=== PATIENT | female | born 1955 | race Caucasian/White ===

== ENCOUNTER → 2023-03-20 11:41 | Outpatient (BNVA) | payer MEDICARE, SELFPAY | PROVIDERS: PCP Family Medicine; Visit Provider Family Medicine | DX: I10 Essential (primary) hypertension (principal); Z85.3 Personal history of malignant neoplasm of breast; R07.9 Chest pain, unspecified | CPT/HCPCS: 80053; 80061; 85025 ==

== ENCOUNTER → 2023-05-08 08:44 | Outpatient (BNVA) | payer MEDICARE, SELFPAY | PROVIDERS: PCP Family Medicine; Visit Provider Family Medicine | DX: R30.0 Dysuria (principal); N39.0 Urinary tract infection, site not specified | CPT/HCPCS: 81000 ==

== ENCOUNTER → 2023-05-17 15:32 | Outpatient (BNVA) | payer MEDICARE, SELFPAY | PROVIDERS: PCP Family Medicine; Visit Provider Family Medicine | DX: N39.0 Urinary tract infection, site not specified (principal) | CPT/HCPCS: 81000; 87077; 87086; 87184 ==

== ENCOUNTER → 2024-03-25 09:49 | Outpatient (BNVA) | payer MEDICARE, SELFPAY | PROVIDERS: PCP Family Medicine; Visit Provider Family Medicine | DX: Z00.00 Encounter for general adult medical examination without abnormal findings; I10 Essential (primary) hypertension; Z85.3 Personal history of malignant neoplasm of breast; E11.9 Type 2 diabetes mellitus without complications | CPT/HCPCS: 80053; 80061; 83036; 84443; 85025 ==

== ENCOUNTER 2024-04-01 14:50 | Outpatient (CLI) | payer MEDICARE, SELFPAY ==
--- NOTE | 2024-04-01 15:00 | XR_ITS ---
WS: [id number] DEXA (DUAL ENERGY X-RAY ABSORPTIOMETRY) Bone mineral density was performed using a [employer] machine. HISTORY: screening COMPARISON: None available. Lumbar spine BMD (L1-L4): 1.007 g/cm2 T score: -1.4 Z score: -0.2 Total hip BMD: Left: 0.867 g/cm2. T score: -1.1 Z score: 0.0 Right: 0.874 g/cm2. T score: -1.1 Z score: 0.0 10 year probability of a major osteoporotic fracture is 9.7%. XR/XR DEXA axial skeleton* 06007 IMPRESSION: OSTEOPENIA based upon the WHO classification for females.
== END 2024-04-01 14:51 | disposition home or self-care (01) ==
LOC: RAD 14:51
PROVIDERS: PCP Family Medicine; Visit Provider Family Medicine
DX: Z00.00 Encounter for general adult medical examination without abnormal findings (principal); M85.80 Other specified disorders of bone density and structure, unspecified site
CPT/HCPCS: 77080

== ENCOUNTER 2024-05-08 07:57 | Outpatient (CLI) | payer MEDICARE, SELFPAY ==
--- NOTE | 2024-05-08 08:00 | US_ITS ---
WS: [id number] US pelvic complete* 77566 HISTORY: vaginal bleeding, 68-year-old postmenopausal. COMPARISON: None available. Uterus: 9.4 cm x 6.2 cm x 5.4 cm. Anteverted uterus. Heterogeneous uterus with areas of shadowing. There is a calcification towards the uterine fundus measuring 1.7 x 1.2 x 0.8 cm. This may be associated with a fibroid. There are scatte red areas of decreased echogenicity. The largest area is posterior to the endometrium this area measu res 4.2 x 3.2 x 2.8 cm. There are central and peripheral calcifications. With distortion. Endometrium: 1.0 cm. Heterogeneous enlarged endometrium. Endometrium is being distorted by fibroids. Neither ovary is identified. No adnexal masses. US/US pelvic complete* 90020 IMPRESSION: 1. Abnormal endometrium. Endometrium is enlarged and distorted by fibroids. Du e to the enlargement and postmenopausal bleeding hysteroscopy should be obtaine d. 2. Mildly enlarged uterus with diffuse heterogeneity. Fibroid uterus. The larg est fibroid along the posterior myometrium distorts the endometrium. This fibro id measures 4.2 x 3.2 x 2.8 cm.
== END 2024-05-08 07:58 | disposition home or self-care (01) ==
LOC: RAD 07:58
PROVIDERS: PCP Family Medicine; Visit Provider Family Medicine
DX: D25.9 Leiomyoma of uterus, unspecified (principal); N85.00 Endometrial hyperplasia, unspecified; N95.0 Postmenopausal bleeding
CPT/HCPCS: 76856

== ENCOUNTER → 2024-07-08 10:06 | Outpatient (BNVA) | payer MEDICARE, SELFPAY | PROVIDERS: PCP Family Medicine; Visit Provider Family Medicine | DX: E11.9 Type 2 diabetes mellitus without complications (principal); E03.9 Hypothyroidism, unspecified; M85.80 Other specified disorders of bone density and structure, unspecified site | CPT/HCPCS: 80048; 83036; 84443 ==

== ENCOUNTER 2024-08-21 08:39 | Day surgery (SDC) | payer MEDICARE, SELFPAY ==
--- NOTE | 2024-08-20 23:50 | P.HP_ITS ---
Providers/Chief Complaint Admitting Physician: Reid Bridges MD Primary UNLEAVENED DOUGH MIXER: Reid Bridges MD Primary Care Provider: Rojas Norman MD Chief Complaint: N95.0 HPI UNLEAVENED DOUGH MIXER History of Present Illness Samira Mays is a 69 year old female LNMP at age 53 began spotting 3 months ago now scheduled for hysteroscopy, endometrial sampling, possible endometrial polypectomy Medications/Allergies Home Medications ?Medication ?Instructions ?Recorded ?Confirmed ?Last Taken ?Type levothyroxine 25 mcg tablet 25 mcg PO DAILY #90 tabs 1 06/14/23 08/20/24 08/19/24 Rx lorazepam 1 mg tablet 1 mg PO DAILY PRN sleep #30 tabs 05/14/24 08/20/24 08/19/24 Rx aspirin 81 mg tablet,delayed 81 mg PO DAILY 06/30/24 0 08/20/24 08/19/24 History release (Adult Aspirin Regimen) lisinopril 10 mg tablet 10 mg PO DAILY #90 tabs 07/2708/20/24 08/19/24 Rx Allergies Allergy/AdvReac Type Severity Reaction Status Date / Time No Known Allergies Allergy Verified 08/20/24 12:48 PFSH UNLEAVENED DOUGH MIXER PFSH: Medical History Osteopenia Hypothyroid Hyperglycemia Hx of breast cancer Hypertension Family History Sister Breast cancer Diabetes Father Diabetes Heart disease Mother Diabetes Hypertension Brother Diabetes Grandfather Thyroid disease Denies family history of Colon cancer Ovarian cancer Prostate cancer Hyperlipidemia Uterine cancer Stroke Social History Smoking and tobacco/nicotine status: unknown if used tobacco/nicotine History History History 3 Term 3 0 Miscarriages/Ectopic 0 Living Children 3 Physical Exam Const: COMMON NORMALS: no acute distress, average body habitus, patient oriented x3, healthy appearing and alert Resp: COMMON NORMALS: normal respiratory effort and clear to auscultation bilaterally Cardio: COMMON NORMALS: regular rate and regular rhythm GI: COMMON NORMALS: Normal to inspection, nondistended, normoactive bowel sounds present and non-tender Results Labs OB ([facility]): Hct 41.9 % (36-47) 03/25/24 Hgb 13.30 g/dL (11.27-16.99) 03/25/24 Plt Count 254 10^3/cmm (157-399) 03/25/24 TSH 4.78 uIU/mL (0.27-4.20) H 07/08/24 Hemoglobin A1c 6.3 % (4.0-6.0) H 07/08/24 Micro Urine Specimen 05/17/23 A&P Assessment and plan (1) Postmenopausal bleeding: plan hysteroscopy, endometrial sampling, possible endometrial polypectomy Procedures and risks explained to patient, including, but not limited to, risks of infection, bleeding, injury to internal organs, anesthesia, blood transfusions. One particular risk is that, in the process of dilating the cervix, the dilating instrument may perforate the uterus. Usually, the uterus heals spontaneously without any complications. Patient understands and wants to proceed PDMP PDMP Reviewed: Not Reviewed Attestations Medical Necessity Statement*: patient with postmenopausal bleeding, now for hysteroscopy Coding Level of Care Code Acute Code for Chg Fwd Diagnoses Postmenopausal bleeding N95.0 Time Spent (min) 30
[2024-08-21] VITALS (10 sets, daily range): BP systolic 121–143; BP diastolic 55–72; PULSE 71–95; RESP 11–19; TEMP 36.4–36.8; O2SAT 96–100; BMI 26.9
[2024-08-21] MEDS: sodium chloride 0.9% 1,000 ML 30 ML IV (09:06)
--- NOTE | 2024-08-21 09:37 | ANES.PREANE2 ---
Pre-Anesthetic Assessment Height/Weight: Height 5 ft 6 in Weight 167 lb Temp Pulse Resp BP Pulse Ox O2 Del Method 97.6 F 71 17 143/70 99 Room Air 08/21/24 08:57 08/21/24 08:57 08/21/24 08:57 08/21/24 08:57 08/21/24 08:57 08/21/24 08:59 Preop Diagnosis: postmenopausal bleeding Operation Date: 08/21/24 10:25 Proposed Procedures p Hysteroscopy w/ Endometrial Sampling 88029, N95.0(Not Applicable) - Reid Bridges MD s Poylpectomy(Not Applicable) - Reid Bridges MD Was Beta Rosario taken within 24 hours: N/A Was Clonidine taken within 24 hours: N/A Last intake: Intake Last Liquid Date 08/20/24 Last Liquid Time 19:30 Last Solid Date 08/20/24 Last Solid Time 19:30 Social No alcohol and No tobacco Exam alert, oriented x 3, clear to auscultation bilaterally and regular rate & rhythm Airway Submandibular: within normal limits Cervical ROM: within normal limits Mallampati: Class II Dentition: full Anesthetic Plan ASA status: 3 Anesthesia: General Other: No prior issues with anesthesia NPO since yesterday evening History of hypertension on lisinopril. Preop BP 143/70 Hypothyroidism on chronic Synthroid. GERD on Protonix Labs 07/08/2024 reviewed and acceptable for procedure Plan for general anesthesia Medications/Allergies Home Medications ?Medication ?Instructions ?Recorded ?Confirmed ?Last Taken ?Type levothyroxine 25 mcg tablet 25 mcg PO DAILY #90 tabs 04/14/24 08/21/24 08/21/24 Rx lorazepam 1 mg tablet 1 mg PO DAILY PRN sleep #30 tabs 05/14/24 08/20/24 08/19/24 Rx aspirin 81 mg tablet,delayed 81 mg PO DAILY 06/30/24 08/20/24 08/19/24 History release (Adult Aspirin Regimen) lisinopril 10 mg tablet 10 mg PO DAILY #90 tabs 08/15/24 08/20/24 08/19/24 Rx pantoprazole 20 mg tablet,delayed 20 mg PO DAILY 08/21/24 08/21/24 08/21/24 History release Allergies Allergy/AdvReac Type Severity Reaction Status Date / Time No Known Allergies Allergy Verified 08/21/24 08:55 Current Medications Generic Name Dose Route Start Last Admin Trade Name Freq PRN Reason Stop Dose Admin Sodium Chloride 1,000 mls @ 30 mls/hr 08/21/24 08:45 08/21/24 09:06 Sodium Chloride 0.9% IV 08/22/24 08:44 30 mls/hr .Q24H JEOVANNY Administration PFSH Anesthesia Medical History Osteopenia Hypothyroid Hyperglycemia Hx of breast cancer Hypertension Family History Sister Breast cancer Diabetes Father Diabetes Heart disease Mother Diabetes Hypertension Brother Diabetes Grandfather Thyroid disease Denies family history of Colon cancer Ovarian cancer Prostate cancer Hyperlipidemia Uterine cancer Stroke Social History Smoking and tobacco/nicotine status: unknown if used tobacco/nicotine Data Anesthesia Cardiac Studies: No Data to Display
--- NOTE | 2024-08-21 11:25 | W.PM.OPSUD ---
Surgery/Procedure H&P Update DATE OF PROCEDURE: August 21, 2024 DATE H&P PERFORMED: 08/20/24 H&P UPDATE INFORMATION: I have reviewed H&P completed within last 30 days, I have examined patient prior to procedure and No changes to prior documentation PREOP DIAGNOSIS: postmenopausal bleeding PLANNED PROCEDURE: Operation Date: 08/21/24 10:25 Proposed Procedures p Hysteroscopy w/ Endometrial Sampling 93085, N95.0(Not Applicable) - Reid Bridges MD s Poylpectomy(Not Applicable) - Reid Bridges MD
--- NOTE | 2024-08-21 12:15 | PM.OP ---
Operative Report Date of procedure: August 21, 2024 Pre-op diagnosis: postmenopausal bleeding Post-op diagnosis: same Post-op findings: one 2 cm broad-based endometrial polyp Minimal endometrial tissue Procedure done: Hysteroscopy Endometrial sampling and polypectomy with Myosure Curettage of uterus Implants: none Specimens removed/disposition: endometrial tissue, sent to pathology Surgeon: Reid Bridges MD Anesthesia: MAC Estimated blood loss (mL): 0 Complications: none Findings: one 2 cm broad-based endometrial polyp Minimal endometrial tissue Condition: stable Disposition: PACU Brief History: 69 y.o. with postmenopausal bleeding Procedure: Informed consent signed. Patient was taken to the operating room. Anesthesia was induced. Patient was placed in dorsolithotomy position, prepped and draped for hysteroscopy. A bivalve speculum was placed in the vagina. The cervix and vagina were normal. The anterior lip of the cervix was grasped with a sharp-toothed tenaculum. The cervix was serially dilated with Hegar dilators. The uterus was sounded to 8 cm. A hysteroscope was placed into the endometrial cavity. There was one 2 cm broad-based endometrial polyp. Minimal endometrial tissue was seen. The endocervical canal was normal. The endometrial cavity was otherwise normal. A Myosure device was then inserted and the endometrial polyp were removed and sent to pathology. Endometrial sampling was also done. The endometrial cavity was seen to be intact. The hysteroscope and Myosure were then removed. Curettage of the uterus was also done. Endometrial tissue was sent to pathology. The sharp-toothed tenaculum was removed. There was no bleeding from the endometrial cavity or cervix. The patient was then placed supine and awakened and taken to the PACU. Postop condition: stable EBL: none Sponge and instruments counts were normal x 2 Complications: none
--- NOTE | 2024-08-21 14:01 | ANE.PACU2 ---
Inpatient post-anesthesia follow up: Airway intact: Yes Vital signs: Temperature 98.1 F Pulse Rate 78 Respiratory Rate 17 Blood Pressure 141/64 Pulse Oximetry 96 Oxygen Delivery Me thod Room Air Oxygen Flow Rate 6 Fraction of Inspir ed Oxygen Hydration adequate: Yes Nausea and vomiting: No Pain level: 1 Mental status: Baseline
== END 2024-08-21 13:33 | disposition home or self-care (01) ==
PROVIDERS: PCP Family Medicine; Visit Provider Obstetrics & Gynecology
PROC: 0UJD8ZZ Inspection of Uterus and Cervix, Via Natural or Artificial Opening Endoscopic (ICD-10-PCS; CPT 58555; principal; 2024-08-21 10:15)
DX: N84.0 Polyp of corpus uteri (principal); N95.0 Postmenopausal bleeding; I10 Essential (primary) hypertension; E03.9 Hypothyroidism, unspecified; K21.9 Gastro-esophageal reflux disease without esophagitis; Z79.899 Other long term (current) drug therapy; Z85.3 Personal history of malignant neoplasm of breast; Z79.890 Hormone replacement therapy; Z79.82 Long term (current) use of aspirin
CPT/HCPCS: 58558; 88305; J2704; J3010; J3490; J7030; J9999

== ENCOUNTER → 2025-01-06 09:10 | Outpatient (BNVA) | payer MEDICARE, SELFPAY | PROVIDERS: PCP Family Medicine; Visit Provider Family Medicine | DX: N18.9 Chronic kidney disease, unspecified (principal); R73.03 Prediabetes; I10 Essential (primary) hypertension; R53.83 Other fatigue; E03.9 Hypothyroidism, unspecified | CPT/HCPCS: 80061; 83036; 84443; 85025 ==